=== PATIENT | male | born 1975 | race African-American/Black ===

== ENCOUNTER → 2017-05-20 | Outpatient (CLI) | payer BC ==
--- NOTE | 2017-05-20 17:59 | RADRPT ---
PROCEDURE: Right knee radiographs. CLINICAL INDICATION: Right knee pain. TECHNIQUE: Four views. Weight bearing. Frontal, lateral, oblique, and patellar view. COMPARISON: No prior studies are available for comparison. FINDINGS: There is no fracture or dislocation. The soft tissues are normal. Articular surfaces are intact. There is no lytic or blastic lesion. There is no radiopaque foreign body. IMPRESSION: 1. Normal images of the right knee. RPTAT: QQ .David Castillo MD, MD Date Time Electronically viewed and signed by .David Castillo MD, on 05/20/2017 17:58 .R/
--- NOTE | 2017-05-21 12:09 | HKNOTE ---
DATE OF SERVICE: 05/20/2017 CHIEF COMPLAINT: Right knee pain. HISTORY OF PRESENT ILLNESS: This is a 41-year-old male who had a fall on 04/27/2017 onto the right k nee. He immediately had pain. Over the next few days he had increasing swelling of the right knee a nd difficulty ambulating. He used crutches for 4 days. He states that his pain has improved. He frank es any locking, catching or instability. He denies any groin or back pain. He has no other complaint s. GAIT: Nonantalgic gait. No use of assistive device. RIGHT KNEE EXAMINATION: Neutral alignment, 0 to 120 range of motion, stable to varus valgus stress, negative locking, negative anterior drawer, negative posterior drawer. Motor strength 5/5 tibialis anterior, gastrocsoleus, hamstrings and quadriceps. X-RAYS RIGHT KNEE: Two-views of the right knee demonstrated no abnormalities. IMPRESSION: This is a 41-year-old male with right knee contusion. PLAN: He was instructed to ice and elevate the knee and take ibuprofen as needed. He was instructed on home exercises. He will follow up as needed in the future. Dictated By: MALIK HURTADO/KRISTAL Conf#: [id number] DID#: [id number]
== END | disposition home or self-care (01) ==
LOC: HKI 14:37
PROVIDERS: ATTEND Orthopaedic Surgery Adult Reconstructive Orthopaedic Surgery
DX: S80.01XD Contusion of right knee, subsequent encounter (principal); W19.XXXD Unspecified fall, subsequent encounter; R22.41 Localized swelling, mass and lump, right lower limb
CPT/HCPCS: G0463